=== PATIENT | female | born 1960 | race Asian ===

== ENCOUNTER 2019-09-29 12:12 | Inpatient (IN) | payer MEDICARE, OTHER ==
[2019-09-29] VITALS (13 sets, daily range): BP systolic 133–169; BP diastolic 25–106
[~2019-09-29] VITALS: Ht 162.6 cm; Wt 71.7 kg
--- NOTE | 2019-09-29 12:15 | NUR ---
PET FOOD DEBONER NOTES ADMISSION RECEIVED PATIENT FROM [facility] BY EMT. PATIENT IS CONFUSED AND TRYING TO PULL THE CENTRAL LINE, PUT PATIENT ON BILATERAL SOFT RESTRAINS. VITALS HR 104, SPO2 91% BP 151/84. TEMP 98.2. CALL LIGHT WITHIN REACH , BED AT THE LOWEST POSITION LOCKED. WILL CONTINUE TO MONITOR THE PATIENT.
[2019-09-29] MEDS ORDERED: CONGENTIN PO (12:31)
[2019-09-29] MEDS ORDERED: METO25TA20 PO (12:31)
[2019-09-29] MEDS ORDERED: AMLO10TA4 PO (12:31)
[2019-09-29] MEDS ORDERED: CHOL500062 PO (12:31)
[2019-09-29] MEDS ORDERED: METF-442 PO (12:31)
[2019-09-29] MEDS ORDERED: TIMO5SOL11 EACHEYE (12:31)
[2019-09-29] MEDS ORDERED: LATA2.5D7 EACHEYE (12:31)
[2019-09-29] MEDS ORDERED: LOSA50TA39 PO (12:31)
[2019-09-29] MEDS ORDERED: GLIP10TA11 PO (12:31)
[2019-09-29] MEDS ORDERED: FENO134C PO (12:31)
[2019-09-29] MEDS ORDERED: LEVO100T9 PO (12:31)
[2019-09-29] MEDS ORDERED: NIAC500T2 PO (12:31)
[2019-09-29] MEDS ORDERED: trajenta PO (12:31)
[2019-09-29] MEDS ORDERED: ASPI-1169 PO (12:31)
[2019-09-29] MEDS ORDERED: ONDANSETRON HCL/PF 4 MG/2 ML VIAL IVP PRN (13:00)
[2019-09-29] MEDS ORDERED: ACETAMINOPHEN 325 MG TABLET PO PRN (13:00)
[2019-09-29] MEDS ORDERED: ALBUTEROL SULFATE 8 GM HFA.AER.AD IH PRN (13:00)
[2019-09-29 13:21] LABS: BASOPHILS % (AUTO) 0.1 % (0.0-2.0); EOSINOPHILS % (AUTO) 0.5 % (0.0-6.0); HEMATOCRIT 29 % (33-45); HEMOGLOBIN 9.8 g/dL (11.5-14.8); LYMPHOCYTES # (AUTO) 0.8 /CMM (0.8-4.8); LYMPHOCYTES % (AUTO) 5.9 % (20.0-44.0); MEAN CORPUSCULAR HGB CONC 34 g/dl (31.0-36.0); MEAN CORPUSCULAR VOLUME 83 fL (82-100); MONOCYTES # (AUTO) 0.8 /CMM (0.1-1.30); MONOCYTES % (AUTO) 5.9 % (2.0-12.0); NEUTROPHILS # (AUTO) 11.4 /CMM (1.8-8.9); NEUTROPHILS % (AUTO) 87.6 % (43.0-81.0); PLATELET COUNT (AUTO) 220 /CMM (150-450); RED BLOOD CELL COUNT(AUTO) 3.54 MIL/uL (4.0-5.2)
[2019-09-29 13:29] LABS: CALCIUM, SERUM 9.4 mg/dL (8.5-10.1); CREATININE 0.9 mg/dL (0.6-1.3)
[2019-09-29] MEDS ORDERED: DEXTROSE 50%-WATER 50 ML DISP.SYRIN IV PRN ×2 (13:30)
[2019-09-29] MEDS ORDERED: INSULIN REGULAR, HUMAN 100 UNIT/ML 3 ML VIAL SQ PRN (13:30)
[2019-09-29] MEDS: DEXAMETHASONE 4 MG TABLET PO SCH (15:35)
--- NOTE | 2019-09-29 15:53 | NUR ---
RETAIL COVERAGE MERCHANDISER LEAD NOTES PER HOSPITALIST RAJESH IT IS OK TO PERFORM ACCU CHECK AND ADMINISTER INSULIN PER SLIDING SCALE FOR THE NEW ADMIT PATIENT.
[2019-09-29] MEDS: INSULIN REGULAR, HUMAN 100 UNIT/ML 3 ML VIAL SQ PRN ×2 (15:59→18:22)
[2019-09-29] MEDS: ENOXAPARIN SODIUM 40 MG/0.4 ML DISP.SYRIN SQ SCH (16:01)
--- NOTE | 2019-09-29 16:28 | NUR ---
MUSIC INSTRUCTOR NOTES BELONGINGS CHECKED AND SIGNED. PLACED IN THE CHART.
[2019-09-29 17:01] LABS: ALBUMIN 2.5 g/dL (3.4-5.0); BILIRUBIN,DIRECT 0.1 mg/dL (0.0-0.2); BILIRUBIN,TOTAL 0.3 mg/dL (0.2-1.0); TOTAL PROTEIN, SERUM 6.8 g/dL (6.4-8.2)
--- NOTE | 2019-09-29 17:06 | NUR ---
CARBON GRINDER NOTES URINE CULTURE RECIVED A CALL FROM [facility] REGARDING URINALYSIS. PATIENT HAS ECOLI MDRO
[2019-09-29] MEDS ORDERED: BLOOD SUGAR DIAGNOSTIC 1 EACH STRIP IN SCH (17:30)
[2019-09-29] MEDS: IV NS 0.9% 1,000 ML IV PRN (17:53)
[2019-09-29] MEDS ORDERED: INVESTIGATIONAL MED MISC 1 EA in IV NS 0.9% 250 ML IV ONE (18:00)
[2019-09-29] MEDS: BLOOD SUGAR DIAGNOSTIC 1 EACH STRIP VI SCH ×2 (18:16→22:01)
--- NOTE | 2019-09-29 18:54 | NUR ---
FORENSIC BALLISTICS EXPERT NOTES CALLED SADE FREEDMAN NOT AVAILABLE AT OFFICE ALLED THE [phone] NUMBER AND LEFT A MESSAGE TO CALL BACK FOR CONVALESCENT PLASMA CONSENT.
--- NOTE | 2019-09-29 19:15 | NUR ---
RN OPENING NOTES: PATIENT IN BED, AWAKE, AND ALERT WITH EPISODES OF CONFUSION. ON O2 VIA NRB AT 15 LPM, UNLABORED BREATHING. NO C/O PAIN AT THIS TIME. RIGHT FEMORAL TRIPLE LUMEN CATH C/D/I, FLUSHING WELL. SAFETY PRECAUTIONS IMPLEMENTED. BED LOCKED, ALARM ON, LOW POSITION. BILATERAL SIDE RAILS X 2 UP. HOB ELEVATED. PER AM RN, SHE CALLED CONSERVATOR FOR CONSENT FOR BLOOD PLASMA TRANSFUSION; LEFT A MSG BUT NO CALL BACK YET. CALL LIGHT WITHIN REACH. WILL CONT. TO MONITOR. Addendum: 09/30/19 at 0701 by REED IBARRA RN NO SIDE EFFECTS NOTED FROM REMDESIVIR IV.
--- NOTE | 2019-09-29 19:44 | NUR ---
MECHANIC INSULATOR NOTES CLOSING PATIENT IN BED ON RESTRAINS. NO SOB OR DISCOMFORT NOTED AT THIS TIME. ALL NEEDS ATTENDED. PATIENT ON ISOLATION FOR COVID POSITIVE. BED AT THE LOWEST POSITION LOCKED. CALL LIGHT WITHIN REACH. ENDORSED TO SHELL ASSEMBLER NURSE FOR BRANDEN.
[2019-09-29] MEDS ORDERED: CEFEPIME 1 GM VIAL IV SCH (21:00)
[2019-09-29] MEDS: CEFEPIME 1 GM in IV D5W 50 ML IV SCH (21:09)
[2019-09-29] MEDS: DOXYCYCLINE HYCLATE (100 MG) 100 MG TABLET PO SCH (21:12)
[2019-09-29] MEDS: COLCHICINE 0.6 MG TABLET PO SCH (21:30)
[2019-09-29] MEDS: *INSULIN REGULAR(HUMULIN R)HUM 100 UNIT/ML VIAL SQ PRN (21:59)
--- NOTE | 2019-09-29 23:00 | NUR ---
RN NOTE: PATIENT NOTED WITH LOW GRADE FEVER 99.7F, TYLENOL WAS GIVEN, WILL MONITOR FOR EFFECTIVENESS.
[2019-09-30] VITALS (37 sets, daily range): BP systolic 81–177; BP diastolic 41–109
[2019-09-30 05:07] LABS: ALBUMIN 2.4 g/dL (3.4-5.0); BILIRUBIN,DIRECT 0.1 mg/dL (0.0-0.2); BILIRUBIN,TOTAL 0.2 mg/dL (0.2-1.0); CREATININE 0.8 mg/dL (0.6-1.3); MAGNESIUM 1.6 mg/dL (1.8-2.4); POTASSIUM 3.9 mmol/L (3.5-5.1); TOTAL PROTEIN, SERUM 6.8 g/dL (6.4-8.2)
[2019-09-30 05:21] LABS: BASOPHILS % (AUTO) 0.1 % (0.0-2.0); HEMATOCRIT 28 % (33-45); HEMOGLOBIN 9.6 g/dL (11.5-14.8); LYMPHOCYTES # (AUTO) 0.6 /CMM (0.8-4.8); LYMPHOCYTES % (AUTO) 4.6 % (20.0-44.0); MEAN CORPUSCULAR HGB CONC 34 g/dl (31.0-36.0); MEAN CORPUSCULAR VOLUME 82 fL (82-100); MONOCYTES # (AUTO) 0.7 /CMM (0.1-1.30); MONOCYTES % (AUTO) 5.4 % (2.0-12.0); NEUTROPHILS # (AUTO) 11.3 /CMM (1.8-8.9); NEUTROPHILS % (AUTO) 89.9 % (43.0-81.0); PLATELET COUNT (AUTO) 229 /CMM (150-450); RED BLOOD CELL COUNT(AUTO) 3.45 MIL/uL (4.0-5.2); WHITE BLOOD COUNT (AUTO) 12.6 K/uL (4.3-11.0)
[2019-09-30] MEDS: IV NS 0.9% 1,000 ML IV PRN (06:53)
--- NOTE | 2019-09-30 07:00 | NUR ---
RN NOTES: RECEIVED PT ON BED, AWAKE, AND ALERT, CONFUSION. ON NR MASK AT 15L , O2 WNL, UNLABORED BREATHING. PT HAS TENDENCY TO TAKE HER NR MASK OFF , KIKA SOFT RESTRAINS ON FOR PT SAFETY, ON TELE SR HR IN 80,S , NS AT 75CC/HR RUNNING , DENIES ANY PAIN, RIGHT FEMORAL TRIPLE LUMEN CATH C/D/I, FLUSHING WELL. BED LOCKED AND IN LOWEST POSITION. SR UP x3, CALL LIGHT WITHIN EASY REACH, HOB ELEVATED. WILL CONT. TO MONITOR.
--- NOTE | 2019-09-30 07:01 | NUR ---
RN CLOSING NOTES: PATIENT IN BED, ASLEEP. NO RESPIRATORY DISTRESS. REMAINS ON NRB AT 15 LPM. NO C/O PAIN. NO ACUTE DISTRESS DURING SHIFT. PENDING CONSENT FOR BLOOD TRANSFUSION. LEFT A MESSAGE TO THE CONSERVATOR. FORM FOR CONVALESCENT PLASMA NEEDS SIGNATURE FROM DR. SELBY. ENDORSED TO AM SHIFT RN FOR CONTINUITY FOR CARE.
[2019-09-30] MEDS: CEFEPIME 1 GM in IV D5W 50 ML IV SCH ×2 (08:33→22:03)
[2019-09-30] MEDS: INSULIN REGULAR, HUMAN 100 UNIT/ML 3 ML VIAL SQ PRN ×3 (08:35→17:25)
[2019-09-30] MEDS: DEXAMETHASONE 4 MG TABLET PO SCH (08:36)
[2019-09-30] MEDS: DOXYCYCLINE HYCLATE (100 MG) 100 MG TABLET PO SCH ×2 (08:36→22:01)
[2019-09-30] MEDS: BLOOD SUGAR DIAGNOSTIC 1 EACH STRIP VI SCH ×4 (08:36→22:21)
[2019-09-30] MEDS: COLCHICINE 0.6 MG TABLET PO SCH ×2 (08:37→16:16)
[2019-09-30] MEDS: LORAZEPAM INJ 2 MG/ML VIAL IV PRN ×2 (09:00→15:35)
--- NOTE | 2019-09-30 10:00 | NUR ---
RN NOTES CALL RECEIVED FROM RL CLARK ( COURT CLINICAL STUDY MANAGER ) REGARDING CONSENT FOR CONVALESCENT PLASMA TRANSFUSION. TELEPHONE CONSENT OBTAINED FROM RL CLARK FOR CONVALESCENT PLASM TRANSFUSION.
[2019-09-30] MEDS: Magnesium 1GM/D5W 100ML PREMIX 100 ML IV SCH ×2 (10:46→12:07)
--- NOTE | 2019-09-30 13:00 | NUR ---
RN NOTES PT IS CONFUSED AND DISORIENTED. ABLE TO TAKE HER NRMASK OFF AT TIMES. PT REORIENTED TO ROOM AND SURROUNDING , CONTINUE TO MONITOR.
[2019-09-30 14:02] LABS: ABG BASE EXCESS -4.7 mmol/L; ABG OXYGEN SATURATION 95.8 % (92.0-98.5); ABG PCO2 23.1 mmHg (35.0-45.0); ABG PH 7.489 (7.350-7.450); ABG PO2 82.1 mmHg (75.0-100.0); AaDO2 607.8 mmHg; COHb 0.3 % (0.5-1.5); MetHb 0.1 % (0.0-1.5); O2Hb 95.4 % (94.0-97.0); SITE, ABG Right Radial; VENT MODE, BG NRB
--- NOTE | 2019-09-30 16:00 | NUR ---
RN NOTES FACE TIME VISIT DONE WITH DR FRANCO AND PATIENT. NEW ORDER RECEIVED , CONTINUE TO MONITOR.
[2019-09-30] MEDS: TIMOLOL 0.5% SOLN OPHTH 5 ML BOTTLE OP SCH (16:13)
[2019-09-30] MEDS: glipiZIDE 10 MG TABLET PO SCH (16:13)
[2019-09-30] MEDS: METFORMIN 500 MG TABLET PO SCH (16:14)
[2019-09-30] MEDS: BENZTROPINE MESYLATE (1 MG) 1 MG TABLET PO SCH (16:15)
[2019-09-30] MEDS: METOPROLOL TARTRATE 25 MG TABLET PO SCH (16:15)
[2019-09-30] MEDS: HALOPERIDOL 1 MG TABLET PO SCH (17:00)
[2019-09-30] MEDS ORDERED: TIMOLOL -XE 0.5% 5 ML BOTTLE EACHEYE SCH (17:00)
[2019-09-30] MEDS ORDERED: K PHOS NEUTRAL 250 MG TABLET PO ONE (17:30)
--- NOTE | 2019-09-30 17:30 | NUR ---
RN NOTES PT IS MEGA, ARLET CABRERA HELD AT THIS TIME , CONTINUE TO MONITOR .
--- NOTE | 2019-09-30 18:00 | NUR ---
RN NOTES NO SIGNIFICANT CHANGES NOTED ON THIS SHIFT, VSS STABLE, BRYANT DRAINING TO GRAVITY, R FEMORAL TLC SITE CLEAN, DRY AND INTACT, SR UP x3, CALL LIGHT WITHIN EASY REACH, BED LOCKED AND IN LOWEST POSITION, WILL ENDORSE TO CORNER BEAD OPERATOR NURSE FOR CONTINUITY OF CARE.
[2019-09-30] MEDS: INVESTIGATIONAL MED MISC 1 EA in IV NS 0.9% 250 ML IV SCH (18:25)
--- NOTE | 2019-09-30 20:20 | NUR ---
LAND LEVELER. INITIAL ASSESSMENT. RECEIVED THE PT REST ON THE BED, AWAKE, ALERT. POOR CONCENTRATION. OXYGEN NONREBREATHER . SAT 97%. NO ACUTE DISTRESS NOTED. PRODUCE WEIGHER SHOWING NSR, IV RT FEMORAL TLC, TKO RUNNING.KIKA SOFT WRIST RESTRAINT CHECKED AND RELEASED, NO INJURY OR REDNESS NOTED. FC PATENT. URINE DRAINING. HOB ELEVATED. AFEBRILE. WILL CONTINUE TO MONITOR VITALS.
[2019-09-30] MEDS: Z GUARD REMEDY 2 OZ OINT TP SCH (21:59)
[2019-09-30] MEDS: ENOXAPARIN SODIUM 40 MG/0.4 ML DISP.SYRIN SQ SCH (22:00)
[2019-09-30] MEDS: LATANOPROST EYE DROP 0.005% 2.5 ML BOTTLE EACHEYE SCH (22:01)
[2019-09-30] MEDS: *INSULIN REGULAR(HUMULIN R)HUM 100 UNIT/ML VIAL SQ PRN (22:24)
[2019-10-01] VITALS (54 sets, daily range): BP systolic 79–178; BP diastolic 41–130
--- NOTE | 2019-10-01 04:42 | NUR ---
EXHAUST WORKER. AM CARE. ORAL CARE, BED BATH GIVEN. LINEN CHANGED. REMAINING SAME OXYGEN TOLEARTED WELL. SAT 99%. CLIENT SERVICE AND CONSULTING MANAGER SHOWING NSR. IV RT FEMORAL TLC. TKO RUNNING. HOB ELEVATED. KIKA SOFT WRIST RESTRAINT CHECKED AND RELEASED. NO INJURY OR REDNESS NOTED, FC PATENT URINE DRAINING. AFEBRILE. TURN AND REPOSITION Q2H. WILL CONTINUE TO MONITOR VITALS.
[2019-10-01 05:25] LABS: BASOPHILS % (AUTO) 0.1 % (0.0-2.0); EOSINOPHILS % (AUTO) 0.5 % (0.0-6.0); HEMATOCRIT 34 % (33-45); HEMOGLOBIN 11.5 g/dL (11.5-14.8); LYMPHOCYTES # (AUTO) 1.8 /CMM (0.8-4.8); LYMPHOCYTES % (AUTO) 6.9 % (20.0-44.0); MEAN CORPUSCULAR HGB CONC 33 g/dl (31.0-36.0); MEAN CORPUSCULAR VOLUME 83 fL (82-100); MONOCYTES # (AUTO) 1.4 /CMM (0.1-1.30); MONOCYTES % (AUTO) 5.6 % (2.0-12.0); NEUTROPHILS % (AUTO) 86.9 % (43.0-81.0); PLATELET COUNT (AUTO) 210 /CMM (150-450); RED BLOOD CELL COUNT(AUTO) 4.14 MIL/uL (4.0-5.2); WHITE BLOOD COUNT (AUTO) 25.3 K/uL (4.3-11.0)
[2019-10-01 05:36] LABS: ALBUMIN 2.7 g/dL (3.4-5.0); BILIRUBIN,DIRECT 0.1 mg/dL (0.0-0.2); BILIRUBIN,TOTAL 0.3 mg/dL (0.2-1.0); CALCIUM, SERUM 9.2 mg/dL (8.5-10.1); CREATININE 1.4 mg/dL (0.6-1.3); PHOSPHORUS 3.8 mg/dL (2.5-4.9); POTASSIUM 3.7 mmol/L (3.5-5.1); TOTAL PROTEIN, SERUM 7.2 g/dL (6.4-8.2)
--- NOTE | 2019-10-01 06:15 | NUR ---
professor of floriculture convalescent plasma started, during transfusion no complication noted, will continue to monitor vitals.
--- NOTE | 2019-10-01 07:23 | NUR ---
WOUND CARE CONSULT: REVIEWED CHART, NURSING DOCUMENTATION AND PHOTOS WHICH SHOW SCARRING TO THIGHS AND TO SACRUM EXTENDING TO BUTTOCKS, PRESENT ON ADMISSION. PT MOVES ABOUT IN BED. CURRENT LUKAS SCORE IS 16. RECOMMENDATIONS MADE FOR SKIN PROTECTION. DISCUSSED WITH NURSING STAFF. WILL SEE PRN. RAMOS IN AGREEMENT WITH PLAN OF CARE.
--- NOTE | 2019-10-01 07:35 | NUR ---
INDUSTRIAL LABORER: pt was uncooperative, removed restraints, NRB O2 mask, placed back on by night nurse
[2019-10-01] MEDS: LEVOTHYROXINE SODIUM 100 MCG TABLET PO SCH (07:43)
[2019-10-01] MEDS: BLOOD SUGAR DIAGNOSTIC 1 EACH STRIP VI SCH ×4 (07:48→21:44)
--- NOTE | 2019-10-01 07:50 | NUR ---
CHEF'S ASSISTANT: pt. is on 100% O2 NRBM, O2sat. 94-96%, SR, SBP [id number], T 97.7, able to eat, f/c patent, convalescent FFP unit is transfused/tolerated well, now: pt.is cooperative, removed restraints to see reaction, instructed for injury prevention measures, POC. updated with all above, see new orders, ok to give Haldol regular doses
--- NOTE | 2019-10-01 08:10 | NUR ---
PRESS PIPE INSPECTOR: updated with pt.current condition, O2sat., RR, VS, I/O, convFFP done, said: place on 6L O2SM, continue monitoring, with desaturation place back on 100% O2, see new orders, ok to continue regular Haldol
[2019-10-01] MEDS: HALOPERIDOL 1 MG TABLET PO SCH ×2 (08:23→16:05)
[2019-10-01] MEDS: COLCHICINE 0.6 MG TABLET PO SCH ×2 (08:23→16:05)
[2019-10-01] MEDS: TIMOLOL 0.5% SOLN OPHTH 5 ML BOTTLE OP SCH ×2 (08:24→16:06)
[2019-10-01] MEDS: CEFEPIME 1 GM in IV D5W 50 ML IV SCH (08:31)
[2019-10-01] MEDS: DEXAMETHASONE 4 MG TABLET PO SCH (08:32)
[2019-10-01] MEDS: LINAGLIPTIN 5 MG TABLET PO SCH (08:32)
[2019-10-01] MEDS: METOPROLOL TARTRATE 25 MG TABLET PO SCH ×2 (08:33→16:04)
[2019-10-01] MEDS: AMLODIPINE BESYLATE 10 MG TABLET PO SCH (08:33)
[2019-10-01] MEDS: glipiZIDE 10 MG TABLET PO SCH ×2 (08:33→16:05)
[2019-10-01] MEDS: DOXYCYCLINE HYCLATE (100 MG) 100 MG TABLET PO SCH ×2 (08:33→20:56)
[2019-10-01] MEDS: METFORMIN 500 MG TABLET PO SCH (08:33)
[2019-10-01] MEDS: ASPIRIN 81 MG TAB.CHEW PO SCH (08:34)
[2019-10-01] MEDS: BENZTROPINE MESYLATE (1 MG) 1 MG TABLET PO SCH ×2 (08:34→16:04)
[2019-10-01] MEDS: CHOLECALCIFEROL 1,000 UNIT TABLET (VIT D3) PO SCH (08:34)
[2019-10-01] MEDS: Z GUARD REMEDY 2 OZ OINT TP SCH ×2 (08:35→16:06)
--- NOTE | 2019-10-01 08:50 | NUR ---
CONVERSION WORKER: episodes of confused uncooperative, able to remove O2 mask, placed back on wrists restraints, on 6L O2SM, had 87-90% when uncooperative, moving and 94-97% when rest, continue monitoring
[2019-10-01] MEDS ORDERED: Fenofibrate 48 MG TABLET PO SCH (09:00)
[2019-10-01] MEDS ORDERED: LOSARTAN POTASSIUM 50 MG TABLET PO SCH (09:00)
--- NOTE | 2019-10-01 09:10 | NUR ---
EDITORIAL PROJECT MANAGER: O2sat. 95-98%, no SOB on 6L SM now
--- NOTE | 2019-10-01 09:40 | NUR ---
JUMPBASTING FACING BASTER: O2sat.83-90%, RR 24-34, called RT/placed back on 100% O2 NRBM
--- NOTE | 2019-10-01 10:00 | NUR ---
INSPECTOR METAL FABRICATING: called to pharmacy for Warren Galindo
--- NOTE | 2019-10-01 10:20 | NUR ---
RES COUNSELOR: pt.was instructed again by charge nurse to follow commands, POC, do not touch O2 mask, pt is understandable, cooperative now, O2sat. 98-100% now, no SOB, SR, removed restraints/continue monitoring, got 1L water PO and meds
[2019-10-01] MEDS: NIACIN EXT TAB (500MG) 500 MG TABLET.SA PO SCH (11:00)
[2019-10-01] MEDS: INSULIN REGULAR, HUMAN 100 UNIT/ML 3 ML VIAL SQ PRN ×2 (12:02→17:10)
[2019-10-01] MEDS: IV D5/ 0.9% NACL 1,000 ML IV PRN (12:21)
--- NOTE | 2019-10-01 13:58 | NUR ---
KENO DEALER: pt.removed NRB mask multiple times, uncooperative, tried to leave bed, applied back wrists restraints, O2sat. over 95%, SR, RR 25-33, SBP over 100/[id number]
--- NOTE | 2019-10-01 16:41 | NUR ---
BEE RANCHER: still frequent episodes of confused,restless, able to remove restraints, NRBM, encouraged multiple time to be cooperative, follow POC, re risks for desaturation, able to answer: yes, I understand, but easy get back confused, O2sat. 98-100% on 15L 100% O2NRBM, no SOB when rest, getting Haldol PO, SR, SBP over 100/below 160, voids, asking continuously to drink water/ but got explanation again for restriction, Na+ 134. Before next Remdesivir checked GFR: 42 ml/m now, creat 1.8, AST 29, ALT 18, will be infused via NS IV line per protocol
[2019-10-01] MEDS: CEFEPIME 2 GM in IV D5W 100 ML IV SCH (17:08)
[2019-10-01] MEDS: INVESTIGATIONAL MED MISC 1 EA in IV NS 0.9% 250 ML IV SCH (18:01)
--- NOTE | 2019-10-01 18:22 | NUR ---
AIR BAG STRIPPER: Remdesivir IVPB started at 18.00, BP after 15 mins: 152/90, 138/86, SR, O2sat. over 97%
--- NOTE | 2019-10-01 18:45 | NUR ---
PLASTIC TOOL MAKER: ELVIRA Beck updated with pt.current status, VS, I/O, IVF, meds, atbxs, neuro status
[2019-10-01] MEDS: ENOXAPARIN SODIUM 40 MG/0.4 ML DISP.SYRIN SQ SCH (20:57)
[2019-10-01] MEDS ORDERED: CEFEPIME 1 GM in IV D5W 50 ML IV SCH (21:00)
[2019-10-01] MEDS: LATANOPROST EYE DROP 0.005% 2.5 ML BOTTLE EACHEYE SCH (21:14)
[2019-10-01] MEDS: *INSULIN REGULAR(HUMULIN R)HUM 100 UNIT/ML VIAL SQ PRN (21:48)
[2019-10-02] VITALS (25 sets, daily range): BP systolic 108–149; BP diastolic 59–110
[2019-10-02] MEDS: HALOPERIDOL LACTATE INJ 5 MG/ML VIAL IM PRN (02:07)
[2019-10-02] MEDS: IV D5/ 0.9% NACL 1,000 ML IV PRN (03:14)
--- NOTE | 2019-10-02 04:45 | NUR ---
PATIENT REFUSING BLOOD DRAW FOR NEW LABS. TRIED TO ORIENT THE PATIENT AND EXPLAIN THE IMPORTANCE BUT PATIENT STILL REFUSED. STATED SHE IS AND IT WILL HARM THE BABY. SHE WOULD NOT ALLOW US TO GRAB HER ARM. WILL ENDORSE TO MORNING NURSE TO POSSIBLE DRAW IN THE AM.
[2019-10-02] MEDS: CEFEPIME 2 GM in IV D5W 100 ML IV SCH ×2 (05:17→17:44)
[2019-10-02 05:41] LABS: CREATININE, URINE 124.7 MG/DL (30.0-125.0); URINE TOTAL PROTEIN 430.7 mg/dL (0-11.9)
[2019-10-02 06:24] LABS: APPEARANCE,URINE CLOUDY (CLEAR); BILIRUBIN,URINE SMALL (NEGATIVE); BLOOD, URINE LARGE Ery/uL (NEGATIVE); COLOR,URINE YELLOW (YELLOW); KETONES,URINE NEGATIVE (NEGATIVE); LEUKOCYTE ESTERASE ,URINE SMALL (NEGATIVE); NITRITE, URINE NEGATIVE (NEGATIVE); PH,URINE 5.5 (5.0-8.0); PROTEIN,URINE 100 mg/dl (NEGATIVE); UGLUCOSE 100 MG/DL mg/dL (NEGATIVE); UROBILINOGEN,URINE 0.2 EU/dL (0.2)
[2019-10-02 07:00] LABS: BACTERIA,URINE Few /HPF (None Seen); RBC,URINE TOO NUMEROUS TO COUN /HPF (0-2); SQUAMOUS EPITHELIAL CELL,UR Few /HPF (None Seen)
--- NOTE | 2019-10-02 07:30 | NUR ---
rn notes received patient in bed, awake, alert and oriented x1-2, forgetful. no shortness of breath noted at this time, sating 100% non rebreather mask. no complaints off distress or pain of any kind. sinus rhythm on the monitor with hr on the 90s. bilateral soft restraints in place, remove and replace to check for skin integrity; no skin issue noted at this time. restraints in place as patient with constant attempt to remove mask per reports. with tlc on the r femoral, in place, dressing intact, flushes well, with ongoing ivf of d5ns at 75 cc/hr. plascencia catheter in place draining to clear yellow urine. patient encourage to call for help/ assistance, call light placed within reach. will implement isolation at all times and continue to monitor patient accordingly
[2019-10-02] MEDS: COLCHICINE 0.6 MG TABLET PO SCH ×2 (08:15→16:58)
[2019-10-02] MEDS: HALOPERIDOL 1 MG TABLET PO SCH ×2 (08:15→16:58)
[2019-10-02] MEDS: DOXYCYCLINE HYCLATE (100 MG) 100 MG TABLET PO SCH ×2 (08:15→20:59)
[2019-10-02] MEDS: CHOLECALCIFEROL 1,000 UNIT TABLET (VIT D3) PO SCH (08:15)
[2019-10-02] MEDS: NIACIN EXT TAB (500MG) 500 MG TABLET.SA PO SCH (08:15)
[2019-10-02] MEDS: METOPROLOL TARTRATE 25 MG TABLET PO SCH ×2 (08:16→16:59)
[2019-10-02] MEDS: BENZTROPINE MESYLATE (1 MG) 1 MG TABLET PO SCH ×2 (08:16→16:59)
[2019-10-02] MEDS: DEXAMETHASONE 4 MG TABLET PO SCH (08:16)
[2019-10-02] MEDS: glipiZIDE 10 MG TABLET PO SCH ×2 (08:16→16:59)
[2019-10-02] MEDS: ASPIRIN 81 MG TAB.CHEW PO SCH (08:16)
[2019-10-02] MEDS: BLOOD SUGAR DIAGNOSTIC 1 EACH STRIP VI SCH ×4 (08:17→22:18)
[2019-10-02] MEDS: AMLODIPINE BESYLATE 10 MG TABLET PO SCH (08:17)
[2019-10-02] MEDS: TIMOLOL 0.5% SOLN OPHTH 5 ML BOTTLE OP SCH ×2 (08:17→17:38)
[2019-10-02] MEDS: LEVOTHYROXINE SODIUM 100 MCG TABLET PO SCH (08:17)
[2019-10-02 08:21] LABS: EOSINOPHIL,URINE None Seen
[2019-10-02] MEDS: INSULIN REGULAR, HUMAN 100 UNIT/ML 3 ML VIAL SQ PRN ×3 (08:21→17:42)
[2019-10-02] MEDS: Z GUARD REMEDY 2 OZ OINT TP SCH ×2 (08:26→17:38)
[2019-10-02] MEDS: LINAGLIPTIN 5 MG TABLET PO SCH (08:26)
[2019-10-02] MEDS: FENOFIBRATE NANOCRYS (145 MG) 145 MG TABLET PO SCH (08:26)
[2019-10-02 08:38] LABS: BASOPHILS # (AUTO) 0.1 /CMM (0.0-0.2); BASOPHILS % (AUTO) 0.3 % (0.0-2.0); EOSINOPHILS % (AUTO) 0.6 % (0.0-6.0); HEMATOCRIT 35 % (33-45); HEMOGLOBIN 11.2 g/dL (11.5-14.8); LYMPHOCYTES # (AUTO) 1.5 /CMM (0.8-4.8); LYMPHOCYTES % (AUTO) 5.9 % (20.0-44.0); MEAN CORPUSCULAR HGB CONC 32 g/dl (31.0-36.0); MEAN CORPUSCULAR VOLUME 85 fL (82-100); MONOCYTES # (AUTO) 1.3 /CMM (0.1-1.30); NEUTROPHILS # (AUTO) 22.8 /CMM (1.8-8.9); NEUTROPHILS % (AUTO) 88.2 % (43.0-81.0); PLATELET COUNT (AUTO) 201 /CMM (150-450); RED BLOOD CELL COUNT(AUTO) 4.11 MIL/uL (4.0-5.2); WHITE BLOOD COUNT (AUTO) 25.9 K/uL (4.3-11.0)
[2019-10-02 09:39] LABS: ALBUMIN 2.3 g/dL (3.4-5.0); BILIRUBIN,DIRECT 0.2 mg/dL (0.0-0.2); BILIRUBIN,TOTAL 0.4 mg/dL (0.2-1.0); CALCIUM, SERUM 8.6 mg/dL (8.5-10.1); CREATININE 1.3 mg/dL (0.6-1.3); TOTAL PROTEIN, SERUM 6.4 g/dL (6.4-8.2)
--- NOTE | 2019-10-02 10:00 | NUR ---
rn notes informed md that patient picc line is without backflow and that site looked like infiltrated. obtained order for midline insertion
--- NOTE | 2019-10-02 13:00 | NUR ---
RN NOTES PATIENT PLACED ON NON REBREATHER PER DR. SELBY'S INSTRUCTION AT 80% WITH 40LPM. SATING 100% AT THIS TIME. WILL CONTINUE TO MONITOR
[2019-10-02] MEDS: INVESTIGATIONAL MED MISC 1 EA in IV NS 0.9% 250 ML IV SCH (17:42)
--- NOTE | 2019-10-02 19:10 | NUR ---
rn notes endorsed for continuity of care. not on any form of distress. breathing unlabored. still on high flow oxygen, sating well. no acute changes within the shift. all nursing needs attended and met. safety precaution in place at all times. call light within reach
--- NOTE | 2019-10-02 19:20 | NUR ---
PICU NURSE OPENING NOTES: RECEIVED PATIENT IN BED RESTING COMFORTABLY. PATIENT IN NO S/SX OF ACUTE DISTRESS AT THIS TIME. NO SOB NOTED. PATIENT IS ON HIGH FLOW OXYGEN VIA NC; TOLERATING WELL.PATIENT ON TELE MONITORING READING SINUS RHYTHM HR IS @90 AT TIME OF RECEIVED. ON CONSISTENT CARB DIET ( DIABETIC/NCS). NOTED IV SITE ON R UA MIDLINE AND R FEMORAL TRIPLE LUMEN CATH ; BOTH PATENT IN INTACT,NO S/S OF INFECTION OR INFILTRATION. PATIENT ON BILATERAL SOFT WRIST RESTRAINTS IN PLACE, ASSESSED PER PROTOCOL.BRYANT CATH IN PLACE, WITH GOOD URINE OUTPUT NOTED. SAFETY MEASURES HAVE BEEN PROVIDED AND IMPLEMENTED. PATIENT BED ALARM IS ON. HEAD OF BED ELEVATED. BED IS LOCKED, IN LOWEST POSITION AND SIDE RAILS UP. CALL LIGHT WITHIN REACH OF THE PATIENT. ISOLATION PRECAUTIONS IN IMPLEMENTED. WILL CONTINUE TO MONITOR AND REASSESS FOR ANY CHANGES.
[2019-10-02] MEDS: ENOXAPARIN SODIUM 40 MG/0.4 ML DISP.SYRIN SQ SCH (20:59)
[2019-10-02] MEDS: LATANOPROST EYE DROP 0.005% 2.5 ML BOTTLE EACHEYE SCH (22:00)
[2019-10-02] MEDS: *INSULIN REGULAR(HUMULIN R)HUM 100 UNIT/ML VIAL SQ PRN (22:22)
[2019-10-03] VITALS (24 sets, daily range): BP systolic 107–183; BP diastolic 42–83
[2019-10-03] MEDS: IV D5/ 0.9% NACL 1,000 ML IV PRN ×2 (01:00→17:31)
[2019-10-03 04:56] LABS: BASOPHILS % (AUTO) 0.1 % (0.0-2.0); EOSINOPHILS % (AUTO) 0.3 % (0.0-6.0); HEMATOCRIT 29 % (33-45); HEMOGLOBIN 9.6 g/dL (11.5-14.8); LYMPHOCYTES # (AUTO) 1.5 /CMM (0.8-4.8); MEAN CORPUSCULAR HGB CONC 33 g/dl (31.0-36.0); MEAN CORPUSCULAR VOLUME 82 fL (82-100); MONOCYTES # (AUTO) 1.2 /CMM (0.1-1.30); MONOCYTES % (AUTO) 5.4 % (2.0-12.0); NEUTROPHILS # (AUTO) 18.8 /CMM (1.8-8.9); NEUTROPHILS % (AUTO) 87.2 % (43.0-81.0); PLATELET COUNT (AUTO) 206 /CMM (150-450); RED BLOOD CELL COUNT(AUTO) 3.54 MIL/uL (4.0-5.2); WHITE BLOOD COUNT (AUTO) 21.5 K/uL (4.3-11.0)
[2019-10-03 05:11] LABS: BILIRUBIN,DIRECT 0.1 mg/dL (0.0-0.2); BILIRUBIN,TOTAL 0.3 mg/dL (0.2-1.0); CALCIUM, SERUM 9.4 mg/dL (8.5-10.1); CREATININE 1.1 mg/dL (0.6-1.3); POTASSIUM 3.9 mmol/L (3.5-5.1); TOTAL PROTEIN, SERUM 5.8 g/dL (6.4-8.2)
[2019-10-03] MEDS: CEFEPIME 2 GM in IV D5W 100 ML IV SCH ×2 (06:00→17:25)
--- NOTE | 2019-10-03 06:56 | NUR ---
FLAME BRAZING MACHINE OPERATOR CLOSING NOTES PATIENT REMAINS IN ROOM IN NO SIGNS OF RESPIRATORY DISTRESS. PATIENT SATURATING >95% O2. VITAL SIGNS WNL. SAFETY PRECAUTIONS IN PLACE AND COMFORT MEASURES RENDERED. BED IN LOWEST POSITION, CALL LIGHT WITHIN REACH, BREAKS ON, SIDE RAILS UP. ALL NEEDS ATTENDED ; SHIFT ASSESSMENT/BEDBATH/SKIN CARE DONE. PATIENT KEPT CLEAN AND DRY. WILL ENDORSE TO INCOMING SHIFT FOR BRANDEN.
--- NOTE | 2019-10-03 07:30 | NUR ---
RN NOTES RECEIVED PATIENT BACK FROM MECHANICAL SERVICE TECHNICIAN NURSE. NOT ON ANY FORM OF DISTRESS. STILL ON HIGH FLOW OXYGEN 40LPM AT 80% FIO2. AWAKE. NO INDICATION OF PAIN NOTED AT THIS TIME. WITH ATTEMPTS TO NASAL CANNULA AND RESTRAINTS. PATIENT WITH NEEDS OF REORIENTATION. IV LINE INTACT. BRYANT CATH INTACT. SAFETY MEASURES IN PLACE. CALL LIGHT WITHIN REACH. WILL CONTINUE TO MONITOR PATIENT ACCORDINGLY
[2019-10-03] MEDS: BLOOD SUGAR DIAGNOSTIC 1 EACH STRIP VI SCH ×4 (08:40→21:43)
[2019-10-03] MEDS: TIMOLOL 0.5% SOLN OPHTH 5 ML BOTTLE OP SCH ×2 (08:40→17:26)
[2019-10-03] MEDS: LEVOTHYROXINE SODIUM 100 MCG TABLET PO SCH (08:40)
[2019-10-03] MEDS: COLCHICINE 0.6 MG TABLET PO SCH ×2 (08:41→17:26)
[2019-10-03] MEDS: ASPIRIN 81 MG TAB.CHEW PO SCH (08:41)
[2019-10-03] MEDS: DEXAMETHASONE 4 MG TABLET PO SCH (08:41)
[2019-10-03] MEDS: BENZTROPINE MESYLATE (1 MG) 1 MG TABLET PO SCH ×2 (08:41→17:27)
[2019-10-03] MEDS: glipiZIDE 10 MG TABLET PO SCH ×2 (08:42→17:26)
[2019-10-03] MEDS: METOPROLOL TARTRATE 25 MG TABLET PO SCH ×2 (08:42→17:27)
[2019-10-03] MEDS: HALOPERIDOL 1 MG TABLET PO SCH ×2 (08:42→17:27)
[2019-10-03] MEDS: NIACIN EXT TAB (500MG) 500 MG TABLET.SA PO SCH (08:43)
[2019-10-03] MEDS: AMLODIPINE BESYLATE 10 MG TABLET PO SCH (08:43)
[2019-10-03] MEDS: LINAGLIPTIN 5 MG TABLET PO SCH (08:44)
[2019-10-03] MEDS: CHOLECALCIFEROL 1,000 UNIT TABLET (VIT D3) PO SCH (08:45)
[2019-10-03] MEDS: Z GUARD REMEDY 2 OZ OINT TP SCH ×2 (08:45→17:27)
[2019-10-03] MEDS: FENOFIBRATE NANOCRYS (145 MG) 145 MG TABLET PO SCH (08:45)
[2019-10-03] MEDS: DOXYCYCLINE HYCLATE (100 MG) 100 MG TABLET PO SCH ×2 (08:45→21:11)
[2019-10-03] MEDS: INSULIN REGULAR, HUMAN 100 UNIT/ML 3 ML VIAL SQ PRN ×4 (08:46→21:46)
--- NOTE | 2019-10-03 10:00 | NUR ---
RN NOTES PATIENT REMOVE IV ACCESS SITE DESPITE BEING ON RESTRAINTS.
[2019-10-03] MEDS: INVESTIGATIONAL MED MISC 1 EA in IV NS 0.9% 250 ML IV SCH (18:17)
--- NOTE | 2019-10-03 19:05 | NUR ---
ASSISTANT ANALYST NOTE RECEIVED PATIENT IN BED RESTING, AWAKE, A&O X1, CONFUSED, ABLE TO MAKE NEEDS KNOWN. ON ISOLATION FOR POSITIVE COVID 19. BREATHING IS EVEN AND NON LABORED. ON HIGH FLOW FIO2 70%, 40 LITERS. ON BRYANT CATH, URINE IS CLEAR AND YELLOW IN COLOR. IV SITES OF RFA GAUGE 22 AND RIGHT FEMORAL TLC ARE CLEAN, DRY, AND PATENT. ON D5NS RUNNING AT 75 MLS/HR. ON BILATERAL SOFT WRIST RESTRAINTS. ABLE TO REPOSITION SELF ON BED. IN NO APPARENT DISTRESS NOTED AT THIS TIME. CALL LIGHT IS WITHIN EASY REACH. WILL CONTINUE TO MONITOR.
[2019-10-03] MEDS: LATANOPROST EYE DROP 0.005% 2.5 ML BOTTLE EACHEYE SCH (21:11)
[2019-10-03] MEDS: LORAZEPAM INJ 2 MG/ML VIAL IV PRN (21:12)
[2019-10-03] MEDS: ENOXAPARIN SODIUM 40 MG/0.4 ML DISP.SYRIN SQ SCH (21:13)
[2019-10-03] MEDS: HALOPERIDOL LACTATE INJ 5 MG/ML VIAL IM PRN (23:42)
--- NOTE | 2019-10-03 23:45 | NUR ---
MANAGER COMMODITIES NOTE NOTED PATIENT VERY ANXIOUS AROUND THIS TIME. PATIENT ATTEMPTS TO GET UP AND VERBALIZED THAT SHE WILL WALK HOME. PATIENT ALSO NOTED TRYING TO RELEASE HERSELF FROM BILATERAL SOFT WRIST RESTRAINTS. HALDOL PRN MED GIVEN ORDERED FOR ANXIETY. WILL CONTINUE TO MONITOR.
[2019-10-04] VITALS (24 sets, daily range): BP systolic 109–157; BP diastolic 43–106
--- NOTE | 2019-10-04 00:05 | NUR ---
SOFTWARE TESTING SPECIALIST NOTE PATIENT TOLERATED BED BATH WELL. PICTURE OF SACRAL WOUND TAKEN AND PLACED IN PATIENT'S CHART. WILL CONTINUE TO MONITOR.
[2019-10-04 04:08] LABS: BASOPHILS % (AUTO) 0.2 % (0.0-2.0); EOSINOPHILS % (AUTO) 0.4 % (0.0-6.0); HEMATOCRIT 29 % (33-45); HEMOGLOBIN 9.7 g/dL (11.5-14.8); LYMPHOCYTES # (AUTO) 1.7 /CMM (0.8-4.8); LYMPHOCYTES % (AUTO) 6.5 % (20.0-44.0); MEAN CORPUSCULAR HGB CONC 33 g/dl (31.0-36.0); MEAN CORPUSCULAR VOLUME 83 fL (82-100); MONOCYTES # (AUTO) 1.4 /CMM (0.1-1.30); MONOCYTES % (AUTO) 5.5 % (2.0-12.0); NEUTROPHILS # (AUTO) 22.8 /CMM (1.8-8.9); NEUTROPHILS % (AUTO) 87.4 % (43.0-81.0); PLATELET COUNT (AUTO) 226 /CMM (150-450); RED BLOOD CELL COUNT(AUTO) 3.52 MIL/uL (4.0-5.2)
[2019-10-04 04:31] LABS: ALBUMIN 2.3 g/dL (3.4-5.0); BILIRUBIN,DIRECT 0.1 mg/dL (0.0-0.2); BILIRUBIN,TOTAL 0.4 mg/dL (0.2-1.0); CALCIUM, SERUM 8.9 mg/dL (8.5-10.1); CREATININE 0.9 mg/dL (0.6-1.3); POTASSIUM 4.9 mmol/L (3.5-5.1)
[2019-10-04] MEDS: CEFEPIME 2 GM in IV D5W 100 ML IV SCH ×2 (05:17→17:45)
[2019-10-04] MEDS: IV D5/ 0.9% NACL 1,000 ML IV PRN ×2 (05:17→20:32)
--- NOTE | 2019-10-04 06:56 | NUR ---
VACUUM TANK TENDER NOTE PATIENT REMAINED STABLE THROUGHOUT THE NIGHT. PATIENT IS KEPT CLEAN, DRY, AND COMFORTABLE. ALL NEEDS ATTENDED AND MET. ALL DUE MEDS GIVEN ORDERED AND TOLERATED WELL. WILL ENDORSE TO AM SHIFT RN FOR CONTINUATION OF CARE.
[2019-10-04] MEDS: ASPIRIN 81 MG TAB.CHEW PO SCH (07:52)
[2019-10-04] MEDS: CHOLECALCIFEROL 1,000 UNIT TABLET (VIT D3) PO SCH (07:52)
[2019-10-04] MEDS: AMLODIPINE BESYLATE 10 MG TABLET PO SCH (07:52)
[2019-10-04] MEDS: FENOFIBRATE NANOCRYS (145 MG) 145 MG TABLET PO SCH (07:52)
[2019-10-04] MEDS: DEXAMETHASONE 4 MG TABLET PO SCH (07:52)
[2019-10-04] MEDS: DOXYCYCLINE HYCLATE (100 MG) 100 MG TABLET PO SCH ×2 (07:53→21:24)
[2019-10-04] MEDS: HALOPERIDOL 1 MG TABLET PO SCH ×2 (07:53→17:06)
[2019-10-04] MEDS: LEVOTHYROXINE SODIUM 100 MCG TABLET PO SCH (07:53)
[2019-10-04] MEDS: COLCHICINE 0.6 MG TABLET PO SCH ×2 (07:53→17:06)
[2019-10-04] MEDS: NIACIN EXT TAB (500MG) 500 MG TABLET.SA PO SCH (07:53)
[2019-10-04] MEDS: glipiZIDE 10 MG TABLET PO SCH ×2 (07:53→17:06)
[2019-10-04] MEDS: BENZTROPINE MESYLATE (1 MG) 1 MG TABLET PO SCH ×2 (07:53→17:06)
[2019-10-04] MEDS: METOPROLOL TARTRATE 25 MG TABLET PO SCH ×2 (07:54→17:07)
[2019-10-04] MEDS: TIMOLOL 0.5% SOLN OPHTH 5 ML BOTTLE OP SCH ×2 (07:54→17:06)
[2019-10-04] MEDS: Z GUARD REMEDY 2 OZ OINT TP SCH ×2 (07:55→17:07)
[2019-10-04] MEDS: BLOOD SUGAR DIAGNOSTIC 1 EACH STRIP VI SCH ×4 (08:35→21:44)
[2019-10-04] MEDS: LINAGLIPTIN 5 MG TABLET PO SCH (08:52)
--- NOTE | 2019-10-04 09:02 | NUR ---
pt. refused to placed on oxygen mask. pt. yell at me and she said " leave me alone , I don't like that mask." Addendum: 10/04/19 at 0904 by GRECIA HARDING RT Amended: Links added.
[2019-10-04] MEDS: INSULIN REGULAR, HUMAN 100 UNIT/ML 3 ML VIAL SQ PRN ×2 (13:07→17:42)
--- NOTE | 2019-10-04 13:30 | NUR ---
placed into venti mask @ 50% fio2. Spo2 95% - 97% HR 84 - 88 bpm no SOB noted Addendum: 10/04/19 at 1408 by GRECIA HARDING RT Amended: Links added.
--- NOTE | 2019-10-04 16:00 | NUR ---
rn notes >informed Dr. Almendarez on patient swollen left leg. No order obtained at this time. > paged Dr. Nails as well, awaiting call back
--- NOTE | 2019-10-04 19:30 | NUR ---
COMMERCIAL CONSTRUCTION PROJECT MANAGER INITIAL SHIFT NOTES RECEIVED PATIENT IN BED, AWAKE, ALERT X1 TO SELF, DISORIENTED/CONFUSED, VERBALIZES THOUGHTS. ON O2 VIA VENTI MASK, 15L FIO2 50%, TOLERATING WELL, NO SIGNS AND SYMPTOMS OF ANY RESPIRATORY DISTRESS. RIGHT FEMORAL TLC IN PLACE, NOT CURRENTLY IN USE DUE TO NEW ONSET SWELLING, PENDING DOPPLER STUDIES. PERIPHERAL IV LEFT FOREARM #22G, RIGHT FOREARM #22G, BOTH SITES PATENT AND INTACT ISOLATION PRECAUTIONS FOR COVID-19 OBSERVED. PLAN OF CARE DISCUSSED WITH THE PATIENT, WHOM VERBALIZES UNDERSTANDING AT THIS TIME, BUT WILL MOST LIKELY NEED FREQUENT REORIENTATION. WILL MONITOR CLOSELY
[2019-10-04] MEDS: LATANOPROST EYE DROP 0.005% 2.5 ML BOTTLE EACHEYE SCH (21:25)
[2019-10-04] MEDS: ENOXAPARIN SODIUM 40 MG/0.4 ML DISP.SYRIN SQ SCH (21:25)
[2019-10-04] MEDS: *INSULIN REGULAR(HUMULIN R)HUM 100 UNIT/ML VIAL SQ PRN (21:43)
[2019-10-05] VITALS (19 sets, daily range): BP systolic 119–139; BP diastolic 60–91
[2019-10-05] MEDS: HALOPERIDOL LACTATE INJ 5 MG/ML VIAL IM PRN (01:17)
[2019-10-05 04:12] LABS: BASOPHILS # (AUTO) 0.1 /CMM (0.0-0.2); BASOPHILS % (AUTO) 0.5 % (0.0-2.0); HEMATOCRIT 30 % (33-45); HEMOGLOBIN 10.3 g/dL (11.5-14.8); LYMPHOCYTES # (AUTO) 0.9 /CMM (0.8-4.8); LYMPHOCYTES % (AUTO) 3.7 % (20.0-44.0); MEAN CORPUSCULAR HGB CONC 34 g/dl (31.0-36.0); MEAN CORPUSCULAR VOLUME 83 fL (82-100); MONOCYTES % (AUTO) 4.2 % (2.0-12.0); NEUTROPHILS % (AUTO) 91.6 % (43.0-81.0); PLATELET COUNT (AUTO) 220 /CMM (150-450); RED BLOOD CELL COUNT(AUTO) 3.64 MIL/uL (4.0-5.2); WHITE BLOOD COUNT (AUTO) 22.9 K/uL (4.3-11.0)
[2019-10-05 04:19] LABS: CALCIUM, SERUM 8.8 mg/dL (8.5-10.1); CREATININE 0.8 mg/dL (0.6-1.3); POTASSIUM 4.4 mmol/L (3.5-5.1)
[2019-10-05] MEDS: CEFEPIME 2 GM in IV D5W 100 ML IV SCH ×2 (06:28→17:11)
--- NOTE | 2019-10-05 07:00 | NUR ---
JEWEL SETTER NOTES PATIEN TOLERATED VENTI MASK THROUGHOUT SHIFT, SET AT 15LPM FIO2 50%. ALL DUE MEDS ADMINISTERED ORDERED. WILL ENDORSE THE PATIENT TO THE AM SHIFT NURSE FOR BRANDEN
--- NOTE | 2019-10-05 07:15 | NUR ---
pt received at this time.alert and awake but confused.respirations unlabotred.o2 via venturi mask in progress as ordered.no dyspnea noted.
[2019-10-05] MEDS: BLOOD SUGAR DIAGNOSTIC 1 EACH STRIP VI SCH ×4 (07:55→21:39)
[2019-10-05] MEDS: INSULIN REGULAR, HUMAN 100 UNIT/ML 3 ML VIAL SQ PRN ×3 (08:24→17:29)
[2019-10-05] MEDS: FENOFIBRATE NANOCRYS (145 MG) 145 MG TABLET PO SCH (08:39)
[2019-10-05] MEDS: glipiZIDE 10 MG TABLET PO SCH ×2 (08:40→16:22)
[2019-10-05] MEDS: LEVOTHYROXINE SODIUM 100 MCG TABLET PO SCH (08:40)
[2019-10-05] MEDS: CHOLECALCIFEROL 1,000 UNIT TABLET (VIT D3) PO SCH (08:40)
[2019-10-05] MEDS: ASPIRIN 81 MG TAB.CHEW PO SCH (08:40)
[2019-10-05] MEDS: LINAGLIPTIN 5 MG TABLET PO SCH (08:40)
[2019-10-05] MEDS: DOXYCYCLINE HYCLATE (100 MG) 100 MG TABLET PO SCH ×2 (08:40→20:49)
[2019-10-05] MEDS: AMLODIPINE BESYLATE 10 MG TABLET PO SCH (08:40)
[2019-10-05] MEDS: BENZTROPINE MESYLATE (1 MG) 1 MG TABLET PO SCH ×2 (08:41→16:22)
[2019-10-05] MEDS: Z GUARD REMEDY 2 OZ OINT TP SCH ×2 (08:41→16:23)
[2019-10-05] MEDS: HALOPERIDOL 1 MG TABLET PO SCH ×2 (08:41→16:22)
[2019-10-05] MEDS: DEXAMETHASONE 4 MG TABLET PO SCH (08:41)
[2019-10-05] MEDS: METOPROLOL TARTRATE 25 MG TABLET PO SCH (08:42)
[2019-10-05] MEDS: NIACIN EXT TAB (500MG) 500 MG TABLET.SA PO SCH (08:42)
[2019-10-05] MEDS: TIMOLOL 0.5% SOLN OPHTH 5 ML BOTTLE OP SCH ×2 (08:43→16:23)
[2019-10-05] MEDS: COLCHICINE 0.6 MG TABLET PO SCH ×2 (08:43→16:22)
[2019-10-05] MEDS: IV D5/ 0.9% NACL 1,000 ML IV PRN ×2 (09:05→11:54)
--- NOTE | 2019-10-05 10:15 | NUR ---
pt resting.ivf infusing.bilateral wrists restraints intact.no c/o pain.
--- NOTE | 2019-10-05 13:15 | NUR ---
pt assisted as needed.plascencia catheter with small amounts of clear yellow urine.pt still confused;reality orientation given.
--- NOTE | 2019-10-05 15:45 | NUR ---
went to pt room and found right femoral triple lumen catheter on the floor with tip intact.no bleeding,edema,or hematoma noted on pt femoral site.dr aguirre informed.
--- NOTE | 2019-10-05 16:03 | NUR ---
dr aguirre called back;no new orders.
--- NOTE | 2019-10-05 17:19 | NUR ---
tamika rn note received patient from supervisor agricultural education ,patient alert with confusion ,trying to remove o2, o2 saturation 91%, on venturi mask 15l 50%, on tele monitor st hr 110 , with Escalera cath to gravity wit yellow color urine, with both hands soft restrain , on ivf as ordered fl on lt fa and rt fa in place but tender to touch , bed in ,lowest and locked position ,per dr carla ernst to to covid test , having dinner
--- NOTE | 2019-10-05 17:42 | NUR ---
RIC RN NOTE PER HEALTH OCCUPATIONS TEACHER UNABLE TO INSERT GOOD IV HL PATIENT IS HARD STICK DR REYNA NOTIFIED OK YO HAVE MID LINE CHARGE NURSE AWARE ,CALLED NURSING PRINCIPAL CYBER ENGINEER
--- NOTE | 2019-10-05 18:42 | NUR ---
RIC RN NOTE COVID TEST TAKEN, SENT TO LAB
--- NOTE | 2019-10-05 18:52 | NUR ---
RIC RN NOTE PICC NURSE AT BEDSIDE MID LINE KAMERON 18 INSERTED ON RT UPPER ARM KAMERON 18
--- NOTE | 2019-10-05 19:10 | NUR ---
RN OPENING NOTES RECEIVED PT ON BED AWAKE ORIENTED TO SELF, WITH EPISODE OF CONFUSION NOTED, ON VENTURI MASK @ 15L 50% FI02 SPO2 96% NO SIGN AND SYMPTOMS OF RESPIRATORY DISTRESS, TELE MONITOR READING SINUS RHYTHM 80'S, WITH SCOTT MIDLINE WITH ONGOING D5NS @75ML/HR INFUSING WELL, WITH BILATERAL SOFT RESTRAINTS CIRCULATION WILL CHECKED REGULARLY ON DROPLET ISOLATION TO R/O COVID PENDING RESULTS SAFETY MEASURE MAINTAINED WILL CONT TO MONITOR
[2019-10-05] MEDS: METOPROLOL TARTRATE 50 MG TABLET PO SCH (20:49)
[2019-10-05] MEDS: ENOXAPARIN SODIUM 40 MG/0.4 ML DISP.SYRIN SQ SCH (20:49)
[2019-10-05] MEDS: *INSULIN REGULAR(HUMULIN R)HUM 100 UNIT/ML VIAL SQ PRN (21:39)
[2019-10-05] MEDS: LATANOPROST EYE DROP 0.005% 2.5 ML BOTTLE EACHEYE SCH (21:40)
--- NOTE | 2019-10-05 22:00 | NUR ---
RN NOTES PT DONT WANT TO RETURN THE MASK ON SHE IS YELLING AT ME AND VERY AGITATED BECAUSE SHE CLAIMED THAT SHE GOT 4X INSULIN INJECTION THE WHOLE DAY, HER CURRENT ORDER IS ACHS SLIDING SCALE INSULIN HER LATEST BLOOD SUGAR IS 290 THATS WHY I GIVE HER 6 UNITS INSULIN PER SLIDING SCALE WHICH IS SHE SO VERY UPSET. TRY TO EXPLAIN TO HERE THAT SHE NEED THAT INSULIN BECAUSE OF HER BLOOD SUGAR IS HIGH. SHE KEEP ON YELLING AT ME AND TELL THAT I AM NOT HER DOCTOR AND DONT TOUCH HER. BUT SHE AGREE TO PUT BACK THE VENTURI MASK, CHECK SPO2 @ 94% AND GOING UP, CHARGE NURSE MADE AWARE, WILL CONT TO MONITOR
[2019-10-05] MEDS: IV NS 0.9% 1,000 ML IV PRN (23:55)
[2019-10-06] VITALS: BP 147/78
[2019-10-06 04:00] VITALS: BP 145/82
[2019-10-06] MEDS: CEFEPIME 2 GM in IV D5W 100 ML IV SCH ×2 (05:02→17:00)
[2019-10-06 06:43] LABS: BASOPHILS % (AUTO) 0.1 % (0.0-2.0); HEMATOCRIT 30 % (33-45); HEMOGLOBIN 9.2 g/dL (11.5-14.8); LYMPHOCYTES # (AUTO) 1.5 /CMM (0.8-4.8); LYMPHOCYTES % (AUTO) 7.9 % (20.0-44.0); MEAN CORPUSCULAR HGB CONC 31 g/dl (31.0-36.0); MEAN CORPUSCULAR VOLUME 88 fL (82-100); MONOCYTES # (AUTO) 1.1 /CMM (0.1-1.30); MONOCYTES % (AUTO) 5.5 % (2.0-12.0); NEUTROPHILS # (AUTO) 16.4 /CMM (1.8-8.9); NEUTROPHILS % (AUTO) 85.5 % (43.0-81.0); PLATELET COUNT (AUTO) 108 /CMM (150-450); RED BLOOD CELL COUNT(AUTO) 3.35 MIL/uL (4.0-5.2); WHITE BLOOD COUNT (AUTO) 19.2 K/uL (4.3-11.0)
--- NOTE | 2019-10-06 06:45 | NUR ---
RN CLOSING NOTES PT ON BED AWAKE NO SIGN AND SYMPTOMS OF RESPIRATORY DISTRESS, SPO2 >95% TELE MONITOR READS SINUS RHYTHM NO SIGNIFICANT CHANGES ON CONDITION NOTED ALL NEEDS ATTENDED DROPLET ISOLATION MAINTAINED SAFETY MEASURE OBSERVED WILL ENDORSED TO AM SHIFT NURSE
--- NOTE | 2019-10-06 07:43 | NUR ---
RN OPENING NOTES: RECEIVED PT IN BED. PT IS ON 15L VENTURI MASK O2 94%. PT IS A/O X1. PT DID NOT SHOW ANY SIGNS OF RESPIRATORY DISTRESS, BREATHING EVEN AND UNLABORED, NO SIGNS OF PAIN. PATIENT IS CONFUSED. PT IS IN BED, LOWEST POSITION, SIDE RAILS ARE UP, CALL LIGHT IS WITHIN REACH. WILL CONTINUE TO MONITOR CLOSELY.
[2019-10-06 08:00] VITALS: BP 123/64
[2019-10-06] MEDS: HALOPERIDOL 1 MG TABLET PO SCH ×2 (08:11→16:58)
[2019-10-06] MEDS: ASPIRIN 81 MG TAB.CHEW PO SCH (08:11)
[2019-10-06] MEDS: FENOFIBRATE NANOCRYS (145 MG) 145 MG TABLET PO SCH (08:12)
[2019-10-06] MEDS: CHOLECALCIFEROL 1,000 UNIT TABLET (VIT D3) PO SCH (08:12)
[2019-10-06] MEDS: glipiZIDE 10 MG TABLET PO SCH ×2 (08:13→16:58)
[2019-10-06] MEDS: LEVOTHYROXINE SODIUM 100 MCG TABLET PO SCH (08:13)
[2019-10-06] MEDS: DOXYCYCLINE HYCLATE (100 MG) 100 MG TABLET PO SCH ×2 (08:14→20:12)
[2019-10-06] MEDS: DEXAMETHASONE 4 MG TABLET PO SCH (08:14)
[2019-10-06] MEDS: AMLODIPINE BESYLATE 10 MG TABLET PO SCH (08:16)
[2019-10-06] MEDS: BENZTROPINE MESYLATE (1 MG) 1 MG TABLET PO SCH ×2 (08:17→16:58)
[2019-10-06] MEDS: COLCHICINE 0.6 MG TABLET PO SCH ×2 (08:17→16:58)
[2019-10-06] MEDS: METOPROLOL TARTRATE 50 MG TABLET PO SCH ×2 (08:18→20:12)
[2019-10-06] MEDS: LINAGLIPTIN 5 MG TABLET PO SCH (08:18)
[2019-10-06] MEDS: BLOOD SUGAR DIAGNOSTIC 1 EACH STRIP VI SCH ×4 (08:19→22:55)
[2019-10-06] MEDS: NIACIN EXT TAB (500MG) 500 MG TABLET.SA PO SCH (08:51)
[2019-10-06] MEDS: *INSULIN REGULAR(HUMULIN R)HUM 100 UNIT/ML VIAL SQ PRN ×2 (08:58→22:14)
[2019-10-06] MEDS: TIMOLOL 0.5% SOLN OPHTH 5 ML BOTTLE OP SCH ×2 (09:08→17:41)
[2019-10-06] MEDS: Z GUARD REMEDY 2 OZ OINT TP SCH ×2 (09:09→17:42)
[2019-10-06 10:51] LABS: CALCIUM, SERUM 8.4 mg/dL (8.5-10.1); CREATININE 0.8 mg/dL (0.6-1.3); MAGNESIUM 1.6 mg/dL (1.8-2.4); PHOSPHORUS 1.4 mg/dL (2.5-4.9); POTASSIUM 4.1 mmol/L (3.5-5.1)
[2019-10-06] MEDS: INSULIN REGULAR, HUMAN 100 UNIT/ML 3 ML VIAL SQ PRN ×2 (11:47→17:40)
[2019-10-06 12:00] VITALS: BP 132/75
--- NOTE | 2019-10-06 12:58 | NUR ---
RN NOTES: PATIENT WAS CHANGED FROM 50L VENTURI MASK TO NC 4L, TOLARETING WELL, O2 SAT 95%. WILL CONTINUE TO MONITOR CLOSELY.
--- NOTE | 2019-10-06 13:00 | NUR ---
RN NOTES: PT WAS SWABBED FOR MRSA THROUGH LEFT NARES. LAB WAS CALLED TO STATISTICAL ANALYST SPECIMEN LEFT IN THE FRIDGE.
[2019-10-06 16:00] VITALS: BP_SYST 124; BP_DIAS 70; BP_DIAS 76
[2019-10-06] MEDS ORDERED: K PHOS NEUTRAL 250 MG TABLET PO ONE (16:00)
--- NOTE | 2019-10-06 16:35 | NUR ---
RN NOTES: PTS COVID RESULTS CAME BACK NEGATIVE. GOT AN ORDER TO DO A SECOND SWAB.
[2019-10-06] MEDS: IV NS 0.9% 1,000 ML IV PRN (17:07)
--- NOTE | 2019-10-06 18:57 | NUR ---
RN CLOSING NOTES: PT IN BED SLEEPING. PT ON 4L O2 95%. PT IS VERY CONFUSED A/0X1. PT DID NOT SHOW ANY SIGNS OF RESPIRATORY DISTRESS, BREATHING EVEN AND UNLABORED. SAFETY MEASURES TAKEN, CALL LIGHT WITHIN REACH. WILL ENDORSE TO THE PM NURSE.
--- NOTE | 2019-10-06 19:43 | NUR ---
RN OPENING NOTE RECEIVED PT IN BED SLEEPING WITH HOB ELEVATED, ON 4L O2 VIA NC CURRENTLY AT 95%. PT A/0 X1. SR ON TELE MONITOR. PT ON BILATERAL WRIST RESTRAINTS SKIN INTACT, NO S/S OF RESPIRATORY DISTRESS, BREATHING EVEN AND UNLABORED. SAFETY MEASURE IN PLACE, CALL LIGHT WITHIN REACH, BED IN LOWEST POSITION. WILL CONTINUE TO MONITOR PT.
[2019-10-06 20:00] VITALS: BP 128/71
[2019-10-06] MEDS: ENOXAPARIN SODIUM 40 MG/0.4 ML DISP.SYRIN SQ SCH (20:23)
[2019-10-06] MEDS: LATANOPROST EYE DROP 0.005% 2.5 ML BOTTLE EACHEYE SCH (22:11)
[2019-10-07] VITALS: BP 123/64
[2019-10-07 04:00] VITALS: BP 120/68
[2019-10-07] MEDS: CEFEPIME 2 GM in IV D5W 100 ML IV SCH ×2 (05:03→17:01)
[2019-10-07] MEDS: HALOPERIDOL LACTATE INJ 5 MG/ML VIAL IM PRN (06:05)
[2019-10-07 06:25] LABS: BASOPHILS % (AUTO) 0.3 % (0.0-2.0); EOSINOPHILS % (AUTO) 0.2 % (0.0-6.0); HEMATOCRIT 27 % (33-45); HEMOGLOBIN 8.6 g/dL (11.5-14.8); LYMPHOCYTES # (AUTO) 1.3 /CMM (0.8-4.8); LYMPHOCYTES % (AUTO) 8.3 % (20.0-44.0); MEAN CORPUSCULAR HGB CONC 32 g/dl (31.0-36.0); MEAN CORPUSCULAR VOLUME 86 fL (82-100); MONOCYTES # (AUTO) 1.1 /CMM (0.1-1.30); MONOCYTES % (AUTO) 6.8 % (2.0-12.0); NEUTROPHILS # (AUTO) 13.4 /CMM (1.8-8.9); NEUTROPHILS % (AUTO) 84.4 % (43.0-81.0); PLATELET COUNT (AUTO) 271 /CMM (150-450); RED BLOOD CELL COUNT(AUTO) 3.14 MIL/uL (4.0-5.2); WHITE BLOOD COUNT (AUTO) 15.9 K/uL (4.3-11.0)
[2019-10-07 06:32] LABS: CALCIUM, SERUM 9.1 mg/dL (8.5-10.1); CREATININE 0.8 mg/dL (0.6-1.3); MAGNESIUM 1.8 mg/dL (1.8-2.4); PHOSPHORUS 1.8 mg/dL (2.5-4.9); POTASSIUM 3.8 mmol/L (3.5-5.1)
--- NOTE | 2019-10-07 06:53 | NUR ---
RN CLOSING NOTE PT IN BED SLEEPING WITH HOB ELEVATED, ON 3 L O2 VIA NC CURRENTLY AT 95%. PT A/0 X1. SR ON TELE MONITOR. PT ON BILATERAL WRIST RESTRAINTS SKIN INTACT, NO S/S OF RESPIRATORY DISTRESS,SCOTT MIDLINE AND RFA LINES PATENT INTACT AND FLUSHING WELL. BREATHING EVEN AND UNLABORED. BRYANT CATH DRAINING URINE BY GRAVITY. SAFETY MEASURES IN PLACE, CALL LIGHT WITHIN REACH, BED IN LOWEST POSITION. ENDORSED TO AM RN FOR BRANDEN
--- NOTE | 2019-10-07 07:17 | NUR ---
RN OPENING NOTES: RECEIVED PT IN BED SLEEPING EASY TO BE AROUSED, PT IS ON 3L NC, O2 95%, NO SIGNS OF RESPIRATORY DISTRESS, BREATHING EVEN UNLABORED, NO SIGNS OF PAIN. PT A/O X 2, CONFUSED AND DISORIENTED. SCOTT MIDLINE, RFA #22 INTACT AND FLUSHED WELL NO SIGNS OF INFILTRATION, PT IS ON TELE MONITOR SR, NS @60ML. SAFETY MAINTAINED, CALL LIGHT WITHIN REACH. WILL CONTINUE TO MONITOR CLOSELY.
[2019-10-07] MEDS: BLOOD SUGAR DIAGNOSTIC 1 EACH STRIP VI SCH ×3 (07:57→16:57)
[2019-10-07 08:00] VITALS: BP 120/68
[2019-10-07] MEDS: INSULIN REGULAR, HUMAN 100 UNIT/ML 3 ML VIAL SQ PRN ×3 (08:02→17:14)
[2019-10-07] MEDS: LEVOTHYROXINE SODIUM 100 MCG TABLET PO SCH (08:16)
[2019-10-07] MEDS: ASPIRIN 81 MG TAB.CHEW PO SCH (08:16)
[2019-10-07] MEDS: BENZTROPINE MESYLATE (1 MG) 1 MG TABLET PO SCH ×2 (08:16→16:57)
[2019-10-07] MEDS: NIACIN EXT TAB (500MG) 500 MG TABLET.SA PO SCH (08:16)
[2019-10-07] MEDS: CHOLECALCIFEROL 1,000 UNIT TABLET (VIT D3) PO SCH (08:17)
[2019-10-07] MEDS: COLCHICINE 0.6 MG TABLET PO SCH ×2 (08:17→16:57)
[2019-10-07] MEDS: DEXAMETHASONE 4 MG TABLET PO SCH (08:17)
[2019-10-07] MEDS: HALOPERIDOL 1 MG TABLET PO SCH ×2 (08:17→16:57)
[2019-10-07] MEDS: glipiZIDE 10 MG TABLET PO SCH ×2 (08:17→16:57)
[2019-10-07] MEDS: AMLODIPINE BESYLATE 10 MG TABLET PO SCH (08:19)
[2019-10-07] MEDS: METOPROLOL TARTRATE 50 MG TABLET PO SCH (08:19)
[2019-10-07] MEDS: LINAGLIPTIN 5 MG TABLET PO SCH (08:19)
[2019-10-07] MEDS: DOXYCYCLINE HYCLATE (100 MG) 100 MG TABLET PO SCH (08:19)
[2019-10-07] MEDS: FENOFIBRATE NANOCRYS (145 MG) 145 MG TABLET PO SCH (08:20)
[2019-10-07] MEDS: Z GUARD REMEDY 2 OZ OINT TP SCH ×2 (08:20→16:58)
[2019-10-07] MEDS: TIMOLOL 0.5% SOLN OPHTH 5 ML BOTTLE OP SCH ×2 (08:22→16:59)
[2019-10-07] MEDS: LORAZEPAM INJ 2 MG/ML VIAL IV PRN ×2 (11:06→16:46)
[2019-10-07] MEDS: IV NS 0.9% 1,000 ML IV PRN (11:49)
[2019-10-07 12:00] VITALS: BP 128/75
[2019-10-07] MEDS ORDERED: DEXA4TAB2 PO (14:20)
[2019-10-07] MEDS ORDERED: ALBU18HF2 IH (14:20)
[2019-10-07 16:00] VITALS: BP 129/69
[2019-10-07] MEDS ORDERED: K PHOS NEUTRAL 250 MG TABLET PO ONE (16:30)
--- NOTE | 2019-10-07 18:15 | NUR ---
RN NOTE TRANSPORT CAME IN TO ORCHESTRA LEADER THE PATIENT, WAS NOT GIVEN A HEADS UP THAT THE PATIENT HAS GOTTEN PLACEMENT AT THE FACILITY. PER CASE MANAGMENT, PATIENT WAS ACCEPTED AT [facility]. WILL START WORKING ON DISCHARGE PAPERS AND GIVE REPORT TO SNF THAT IS ACCEPTING THE PATIENT.
--- NOTE | 2019-10-07 18:51 | NUR ---
rn closing notes patient discharged to [facility]. Report called and given to Kayce GARCES, patient in stable condition, vital signs are stable. Report given to paramedics and discharge paperwork sent with the patient. Pictures of the wound taken and placed in the chart, safety was maintained, call light within reach, endorsed to snf for [facility].
== END 2019-10-07 18:35 | DRG 871 ==
LOC: ICU 12:12 → TELE-TD 10-05 16:55 → TELE1 10-06 09:53 → MEDSG1 10-07 15:55 → UNDODISIN 10-07 18:35
PROVIDERS: ADMIT Nurse Practitioner Acute Care; ATTEND Student in an Organized Health Care Education/Training Program
PROC: 30233K1 Transfusion of Nonautologous Frozen Plasma into Peripheral Vein, Percutaneous Approach (ICD-10-PCS; principal; 2019-09-29)
PROC: 05H933Z Insertion of Infusion Device into Right Brachial Vein, Percutaneous Approach (ICD-10-PCS; 2019-10-02)
PROC: 05H933Z Insertion of Infusion Device into Right Brachial Vein, Percutaneous Approach (ICD-10-PCS; 2019-10-05)
DX: A41.89 Other specified sepsis (principal); J12.89 Other viral pneumonia; U07.1 COVID-19; J96.01 Acute respiratory failure with hypoxia; N17.0 Acute kidney failure with tubular necrosis; J15.9 Unspecified bacterial pneumonia; G93.41 Metabolic encephalopathy; E44.0 Moderate protein-calorie malnutrition; E87.1 Hypo-osmolality and hyponatremia; G93.40 Encephalopathy, unspecified; N39.0 Urinary tract infection, site not specified; Z79.84 Long term (current) use of oral hypoglycemic drugs; Z79.82 Long term (current) use of aspirin; Z79.899 Other long term (current) drug therapy; D63.8 Anemia in other chronic diseases classified elsewhere; E11.65 Type 2 diabetes mellitus with hyperglycemia; E66.9 Obesity, unspecified; E78.5 Hyperlipidemia, unspecified; E83.42 Hypomagnesemia; E03.9 Hypothyroidism, unspecified; E86.1 Hypovolemia; I10 Essential (primary) hypertension; F09 Unspecified mental disorder due to known physiological condition; Z78.1 Physical restraint status; Z68.27 Body mass index [BMI] 27.0-27.9, adult
CPT/HCPCS: 36415; 36600; 71045-TC; 80048-TC; 80076-TC; 81000-TC; 82550-TC; 82570-TC; 82728-TC; 82962-TC; 83615-TC; 83735-TC; 83970; 84100-TC; 84155-TC; 84300-TC; 85025-TC; 85378-TC; 85610-TC; 85730-TC; 86140-TC; 86850-TC; 87081-TC; 87086-TC; 93308-TC; 94760-TC; 94799-TC; A4217; G0378; J0692; J1630; J1650; J1815; J2060; J2405; J3475; J3490; J7030; J7042; J7050; J7060; J8540; P9017-BL; U0003-CS